=== PATIENT | female | born 1965 | race Caucasian/White ===

== ENCOUNTER 2018-07-06 22:48 | Emergency (ER) | payer OTHER ==
[2018-07-07 05:28] LABS: HIV (1/2) Antibody/Antigen Non-Reactive (NonReactive); HIV 1/2 INDEX 0.11 S/CO (<1.00); Hep C IgG Ab Non-Reactive (NonReactive); Hep C Index 0.09 S/CO (0-0.79)
[2018-07-07 06:36] LABS: HBSAB Concentration 12.95 mIU/mL; Hep B Surf AB Reactive (NonReactive)
== END 2018-07-06 23:42 | disposition home or self-care (01) ==
LOC: ERS 22:48
DX: S61.231A Puncture wound without foreign body of left index finger without damage to nail, initial encounter (principal); E03.9 Hypothyroidism, unspecified; M06.9 Rheumatoid arthritis, unspecified; F43.10 Post-traumatic stress disorder, unspecified; F32.9 Major depressive disorder, single episode, unspecified; W26.8XXA Contact with other sharp object(s), not elsewhere classified, initial encounter
CPT/HCPCS: 86706; 86803; 87389; 99283

== ENCOUNTER 2021-01-21 07:08 | Emergency (ER) | payer BC, OTHER ==
[2021-01-21] MEDS ORDERED: Acetaminophen 500 MG TAB ONE (07:30)
== END 2021-01-21 08:32 | disposition home or self-care (01) ==
LOC: ERS 07:08
DX: M79.671 Pain in right foot (principal); E03.9 Hypothyroidism, unspecified

== ENCOUNTER 2022-03-30 07:15 | Emergency (ER) | payer OTHER | END 2022-03-30 07:48 | disposition home or self-care (01) | LOC: ERS 07:15 | DX: R22.32 Localized swelling, mass and lump, left upper limb (principal); E03.9 Hypothyroidism, unspecified | CPT/HCPCS: 99283 ==

== ENCOUNTER 2023-02-03 10:13 | Outpatient (CLI) | payer OTHER | END 2023-02-03 10:14 | disposition home or self-care (01) | LOC: BICMRI 10:13 | PROVIDERS: ATTEND Orthopaedic Surgery | DX: S82.892A Other fracture of left lower leg, initial encounter for closed fracture (principal); S93.492A Sprain of other ligament of left ankle, initial encounter; S90.02XA Contusion of left ankle, initial encounter; M25.472 Effusion, left ankle ==